=== PATIENT | male | born 1940 | race Caucasian/White ===

== ENCOUNTER 2017-07-08 11:19 | Day surgery (SDC) | payer OTHER ==
[~2017-07-08] VITALS: Ht 180.3 cm; Wt 105.2 kg
[~2017-07-08 11:19] MED LIST: ASPIRIN81 MG PO; COQ10200 MG PO; FISH OIL1000 MG PO; HYDROCHLOROT25 MG PO; LOVASTATIN40 M1 PO; METO50TA52 PO; MOVE FREE JOINT1 TAB PO; OCUVIT1 PO; [UNRECOGNIZED DRUG - OTHER] PO
[2017-07-08 15:03] VITALS: BP 131/75
== END 2017-07-08 15:10 | disposition home or self-care (01) | DRG 395 ==
LOC: ENDO 11:19 → ORM 16:00 → ENDO 16:20
PROVIDERS: ATTEND Internal Medicine Gastroenterology
PROC: 0DBH8ZX Excision of Cecum, Via Natural or Artificial Opening Endoscopic, Diagnostic (ICD-10-PCS; principal; 2017-07-08)
PROC: 0DBL8ZX Excision of Transverse Colon, Via Natural or Artificial Opening Endoscopic, Diagnostic (ICD-10-PCS; 2017-07-08)
PROC: 0DBK8ZX Excision of Ascending Colon, Via Natural or Artificial Opening Endoscopic, Diagnostic (ICD-10-PCS; 2017-07-08)
PROC: 0DBN8ZX Excision of Sigmoid Colon, Via Natural or Artificial Opening Endoscopic, Diagnostic (ICD-10-PCS; 2017-07-08)
PROC: 0DBP8ZX Excision of Rectum, Via Natural or Artificial Opening Endoscopic, Diagnostic (ICD-10-PCS; 2017-07-08)
DX: D12.0 Benign neoplasm of cecum (principal); D12.2 Benign neoplasm of ascending colon; D12.3 Benign neoplasm of transverse colon; K63.5 Polyp of colon; K62.1 Rectal polyp; K64.4 Residual hemorrhoidal skin tags; K64.8 Other hemorrhoids; I10 Essential (primary) hypertension; E78.00 Pure hypercholesterolemia, unspecified; Z85.038 Personal history of other malignant neoplasm of large intestine; Z90.49 Acquired absence of other specified parts of digestive tract

== ENCOUNTER 2017-07-29 06:18 | Day surgery (SDC) | payer OTHER ==
[~2017-07-29] VITALS: Ht 180.3 cm; Wt 108.0 kg
[2017-07-29 09:07] VITALS: BP 111/69
== END 2017-07-29 09:30 | disposition home or self-care (01) | DRG 379 ==
LOC: ENDO 06:18 → ORM 17:45
PROVIDERS: ATTEND Internal Medicine Gastroenterology
PROC: 0DB68ZX Excision of Stomach, Via Natural or Artificial Opening Endoscopic, Diagnostic (ICD-10-PCS; principal; 2017-07-29)
PROC: 0DB78ZX Excision of Stomach, Pylorus, Via Natural or Artificial Opening Endoscopic, Diagnostic (ICD-10-PCS; 2017-07-29)
DX: K29.51 Unspecified chronic gastritis with bleeding (principal); K31.7 Polyp of stomach and duodenum; E78.00 Pure hypercholesterolemia, unspecified; I10 Essential (primary) hypertension; Z85.038 Personal history of other malignant neoplasm of large intestine; Z86.010 Personal history of colon polyps

== ENCOUNTER → 2018-06-15 | Outpatient (REF) | payer OTHER ==
[2018-06-15 14:15] VITALS: BP 117/71
== END | disposition home or self-care (01) | DRG 951 ==
LOC: ORM 11:00 → PO 12:29 → ORM 13:00
PROVIDERS: ATTEND Internal Medicine Gastroenterology
DX: Z01.818 Encounter for other preprocedural examination (principal); Z86.010 Personal history of colon polyps; Z85.038 Personal history of other malignant neoplasm of large intestine; K59.00 Constipation, unspecified; Z90.49 Acquired absence of other specified parts of digestive tract; E78.00 Pure hypercholesterolemia, unspecified; I10 Essential (primary) hypertension; Z98.890 Other specified postprocedural states; F17.290 Nicotine dependence, other tobacco product, uncomplicated; R05 Cough; R14.0 Abdominal distension (gaseous)

== ENCOUNTER 2018-09-08 13:56 | Day surgery (SDC) | payer OTHER ==
[~2018-09-08 13:56] MED LIST changes: +IPRATROPIUM 0.06%
[2018-09-08 17:04] VITALS: BP 132/65
== END 2018-09-08 17:19 | disposition home or self-care (01) | DRG 395 ==
LOC: ENDO 13:56 → ORM 22:00
PROVIDERS: ATTEND Internal Medicine Gastroenterology
PROC: 0DBL8ZX Excision of Transverse Colon, Via Natural or Artificial Opening Endoscopic, Diagnostic (ICD-10-PCS; principal; 2018-09-08)
PROC: 0DBK8ZX Excision of Ascending Colon, Via Natural or Artificial Opening Endoscopic, Diagnostic (ICD-10-PCS; 2018-09-08)
PROC: 0DBM8ZX Excision of Descending Colon, Via Natural or Artificial Opening Endoscopic, Diagnostic (ICD-10-PCS; 2018-09-08)
DX: D12.2 Benign neoplasm of ascending colon (principal); D12.4 Benign neoplasm of descending colon; D12.3 Benign neoplasm of transverse colon; K64.4 Residual hemorrhoidal skin tags; I10 Essential (primary) hypertension; Z86.010 Personal history of colon polyps; Z85.038 Personal history of other malignant neoplasm of large intestine

== ENCOUNTER 2020-01-04 08:34 | Day surgery (SDC) | payer OTHER ==
[~2020-01-04 08:34] MED LIST changes: +FLONASE AL50 MCG/ACT
[2020-01-04 11:39] VITALS: BP 133/74
== END 2020-01-04 11:55 | disposition home or self-care (01) | DRG 395 ==
LOC: ENDO 08:34 → ORM 16:15 → ENDO 16:15
PROVIDERS: ATTEND Internal Medicine Gastroenterology
PROC: 0DBM8ZX Excision of Descending Colon, Via Natural or Artificial Opening Endoscopic, Diagnostic (ICD-10-PCS; principal; 2020-01-04)
PROC: 0DBN8ZX Excision of Sigmoid Colon, Via Natural or Artificial Opening Endoscopic, Diagnostic (ICD-10-PCS; 2020-01-04)
PROC: 0DBL8ZX Excision of Transverse Colon, Via Natural or Artificial Opening Endoscopic, Diagnostic (ICD-10-PCS; 2020-01-04)
PROC: 3E0H8KZ Introduction of Other Diagnostic Substance into Lower GI, Via Natural or Artificial Opening Endoscopic (ICD-10-PCS; 2020-01-04)
DX: D12.4 Benign neoplasm of descending colon (principal); D12.5 Benign neoplasm of sigmoid colon; D12.3 Benign neoplasm of transverse colon; K64.4 Residual hemorrhoidal skin tags; K64.8 Other hemorrhoids; K57.30 Diverticulosis of large intestine without perforation or abscess without bleeding; I10 Essential (primary) hypertension; Z90.49 Acquired absence of other specified parts of digestive tract; Z86.010 Personal history of colon polyps; Z85.038 Personal history of other malignant neoplasm of large intestine; Z20.828 Contact with and (suspected) exposure to other viral communicable diseases